=== PATIENT | female | born 1970 | race Two or more races ===

== ENCOUNTER 2019-10-31 13:05 | Emergency (ER) | payer SELFPAY ==
[~2019-10-31] VITALS: Ht 152.4 cm; Wt 65.9 kg
--- NOTE | 2019-10-31 13:40 | PHYS DOC ---
Adult General Chief Complaint Chief Complaint: COUGH HPI HPI Patient is a 49 year old female who presents with fever, cough, soa, dizziness, x 3 days. She states she no longer feels as though she has fever but all other symptoms present. Medical Reception Specialist phone used. Patient states she has a bad headache. She rates her headache at a 9 out of 10. She states she has not taken any pain medications today. She states she she's been drinking tea and taking ibuprofen for her symptoms but none today. Denies any past medical history. Review of Systems Review of Systems Constitutional: fever or chills [] Respiratory: cough or shortness of breath [] Cardiovascular: Mid chest pain Neurologic: headache, denies focal weakness or sensory changes [] All other systems were reviewed and found to be within normal limits, except as documented in this note. Current Medications Current Medications Current Medications Medications (Trade) Dose Ordered Sig/Sandip Start Time Stop Time Status Last Admin Dose Admin Albuterol Sulfate (Ventolin Neb Soln) 2.5 mg 1X ONCE 10/31/19 13:45 10/31/19 13:49 DC 10/31/19 13:45 2.5 MG Fentanyl Citrate (Fentanyl 2ml Vial) 50 mcg 1X ONCE 10/31/19 14:00 10/31/19 14:01 DC 10/31/19 14:42 50 MCG Meclizine HCl (Antivert) 25 mg 1X ONCE 10/31/19 14:00 10/31/19 14:01 DC 10/31/19 14:41 25 MG Prednisone (Prednisone) 50 mg 1X ONCE 10/31/19 13:45 10/31/19 13:49 DC 10/31/19 14:41 50 MG Allergies Allergies Allergies Coded Allergies Type Severity Reaction Last Updated Verified No Known Drug Allergies 10/31/19 No Physical Exam Physical Exam Constitutional: Well developed, well nourished, no acute distress, non-toxic appearance. [] HENT: Normocephalic, atraumatic, bilateral external ears normal, oropharynx moist, no oral exudates, nose normal. [] Eyes: PERRLA, EOMI, conjunctiva normal, no discharge. [] Neck: Normal range of motion, no tenderness, supple, no stridor. [] Cardiovascular:Heart rate regular rhythm, no murmur [] Lungs & Thorax: Bilateral breath sounds clear to auscultation [] Abdomen: Bowel sounds normal, soft, no tenderness, no masses, no pulsatile masses. [] Skin: Warm, dry, no erythema, no rash. [] Back: No tenderness, no CVA tenderness. [] Extremities: No tenderness, no cyanosis, no clubbing, ROM intact, no edema. [] Neurologic: Alert and oriented X 3, normal motor function, normal sensory function, no focal deficits noted. [] Psychologic: Affect normal, judgement normal, mood normal. [] Normal Physical Exam Current Patient Data Vital Signs Vital Signs Date Time Temp Pulse Resp B/P (MAP) Pulse Ox O2 Delivery O2 Flow Rate FiO2 10/31/19 14:42 16 99 Room Air 10/31/19 13:18 97.8 75 147/73 (97) 97.8 Lab Values Laboratory Tests Test 10/31/19 13:36 10/31/19 14:15 10/31/19 14:50 10/31/19 14:53 Influenza Type A Antigen Negative (NEGATIVE) Influenza Type B Antigen Negative (NEGATIVE) White Blood Count 6.3 x10^3/uL (4.0-11.0) Red Blood Count 4.83 x10^6/uL (3.50-5.40) Hemoglobin 14.5 g/dL (12.0-15.5) Hematocrit 43.2 % (36.0-47.0) Mean Corpuscular Volume 89 fL (79-100) Mean Corpuscular Hemoglobin 30 pg (25-35) Mean Corpuscular Hemoglobin Concent 34 g/dL (31-37) Red Cell Distribution Width 12.7 % (11.5-14.5) Platelet Count 146 x10^3/uL (140-400) Neutrophils (%) (Auto) 34 % (31-73) Lymphocytes (%) (Auto) 53 % (24-48) H Monocytes (%) (Auto) 8 % (0-9) Eosinophils (%) (Auto) 3 % (0-3) Basophils (%) (Auto) 1 % (0-3) Neutrophils # (Auto) 2.2 x10^3/uL (1.8-7.7) Lymphocytes # (Auto) 3.3 x10^3/uL (1.0-4.8) Monocytes # (Auto) 0.5 x10^3/uL (0.0-1.1) Eosinophils # (Auto) 0.2 x10^3/uL (0.0-0.7) Basophils # (Auto) 0.1 x10^3/uL (0.0-0.2) Sodium Level 141 mmol/L (136-145) Potassium Level 3.9 mmol/L (3.5-5.1) Chloride Level 102 mmol/L (98-107) Carbon Dioxide Level 28 mmol/L (21-32) Anion Gap 11 (6-14) Blood Urea Nitrogen 10 mg/dL (7-20) Creatinine 0.6 mg/dL (0.6-1.0) Estimated GFR (Cockcroft-Gault) 106.3 BUN/Creatinine Ratio 17 (6-20) Glucose Level 119 mg/dL (70-99) H Calcium Level 9.1 mg/dL (8.5-10.1) Total Bilirubin 0.3 mg/dL (0.2-1.0) Aspartate Amino Transferase (AST) 29 U/L (15-37) Alanine Aminotransferase (ALT) 18 U/L (14-59) Alkaline Phosphatase 72 U/L (46-116) Troponin I Quantitative < 0.017 ng/mL (0.000-0.055) Total Protein 8.1 g/dL (6.4-8.2) Albumin 3.4 g/dL (3.4-5.0) Albumin/Globulin Ratio 0.7 (1.0-1.7) L Urine Collection Type Unknown Urine Color Yellow Urine Clarity Clear Urine pH 7.5 Urine Specific [place] 1.015 Urine Protein Negative mg/dL (NEG-TRACE) Urine Glucose (UA) Negative mg/dL (NEG) Urine Ketones (Stick) Negative mg/dL (NEG) Urine Blood Trace (NEG) Urine Nitrite Negative (NEG) Urine Bilirubin Negative (NEG) Urine Urobilinogen Dipstick 0.2 mg/dL (0.2 mg/dL) Urine Leukocyte Esterase Negative (NEG) Urine RBC 11-20 /HPF (0-2) Urine WBC 0 /HPF (0-4) Urine Squamous Epithelial Cells Mod /LPF Urine Bacteria 0 /HPF (0-FEW) Urine Mucus Slight /LPF POC Urine HCG, Qualitative Hcg negative (Negative) Laboratory Tests 10/31/19 14:15 Laboratory Tests 10/31/19 14:15 EKG EKG NSR[] Interpretation Time: [address] Nichols Radiology/Procedures Radiology/Procedures [] Impressions: [address] [address] IMAGING REPORT Signed PATIENT: FARTUN NG ACCOUNT: [id number] : 1970 LOCATION: ER AGE: 49 SEX: F EXAM STATUS: REG ER ORD. PHYSICIAN: BRIANA PEREZ APRN REASON: cough PROCEDURE: CHEST PA & LATERAL CHEST PA LATERAL History: Cough Comparison: None. Findings: Frontal and lateral views of the chest were obtained. The cardiomediastinal silhouette is normal. Pulmonary vasculature is normal. The lungs are clear. No pleural effusion or pneumothorax is seen. There is no acute bone abnormality. IMPRESSION: No acute cardiopulmonary process. Electronically signed by: Nate Aguilar MD (10/31/2019 3:21 PM) [id number] DICTATED and SIGNED BY: NATE AGUILAR MD DATE: 10/31/19 [id number] [place], [place] [id number] IMAGING REPORT Signed PATIENT: FARTUN NG ACCOUNT: [id number] : 1970 LOCATION: ER AGE: 49 SEX: F EXAM STATUS: REG ER ORD. PHYSICIAN: BRIANA EPREZ APRN REASON: dizziness x 3 days PROCEDURE: CT HEAD WO CONTRAST STUDY: CT head without contrast INDICATION: Dizziness. COMPARISON: None. TECHNIQUE: Axial CT imaging through the head without the use of intravenous contrast. Sagittal and coronal reformats were obtained. One or more of the following individualized dose reduction techniques were utilized for this examination: 1. Automated exposure control 2. Adjustment of the mA and/or kV according to patient size 3. Use of iterative reconstruction technique. FINDINGS: No acute intracranial hemorrhage. Small focus of mineralization within the right frontal lobe, image 16 series 2, which can be seen in the setting of a remote granulomatous process. Grijalva-white matter differentiation is maintained. No mass effect, midline shift or hydrocephalus. Intact calvarium. No mastoid or middle ear effusion. The visualized paranasal sinuses are normally aerated. IMPRESSION: No acute intracranial abnormality identified to account for the patient's symptoms. Electronically signed by: ONIEL RAMOS MD (10/31/2019 3:32 PM) [facility] DICTATED and SIGNED BY: ONIEL RAMOS MD DATE: 10/31/19 1532 Course & Med Decision Making Course & Med Decision Making Pertinent Labs and Imaging studies reviewed. (See chart for details) Ambulatory with a steady gait. She states that she feels palpitations at times. PERRLA. Speaks in full clear sentences. Denies any numbness or tingling, abdominal pain, nausea, vomiting, diarrhea, syncope, vision changes, focal weakness. Skin pink warm and dry. Vital signs within normal limits. Alert and oriented. Lungs clear to auscultation. Bilateral tympanics white. Throat pink without swelling or exudates. No sinus tenderness. Blood work unremarkable. Chest x-ray and CT head came back normal. I have spoken to patient using barrel rifler button phone. Patient states she is feeling much better and the dizziness is only there with movement of her head. She denies chest pain or soa and states the breathing treatment helped a lot. [] Dragon Disclaimer Dragon Disclaimer This electronic medical record was generated, in whole or in part, using a voice recognition dictation system. The HEART Score for CP Pts HEART Score for Chest Pain: HEART Score for Chest Pain Response (Comments) Value History Slighlty/Non-Suspicious 0 ECG Normal 0 Age >45 - < 65 1 Risk Factors No Risk Factors 0 Troponin < Normal Limit 0 Total 1 Risk Factors: Risk Factors: DM, Current or recent (<one month) smoker, HTN, HLP, family history of CAD, obesity. Risk Scores: Score 0 - 3: 2.5% MACE over next 6 weeks - Discharge Home Score 4 - 6: 20.3% MACE over next 6 weeks - Admit for Clinical Observation Score 7 - 10: 72.7% MACE over next 6 weeks - Early Invasive Strategies NIHSS Stroke Scale NIH Stroke Scale: NIH Stroke Scale Response (Comments) Value Level of Consciousness: 0 Alert/Responsive 0 LOC Questions: 0 Answers both correctly 0 LOC Commands: 0 Performs both tasks 0 Best Gaze: 0 Normal 0 Visual: 0 No visual loss 0 Facial Palsy: 0 Normal, symmetrical 0 Motor - Left Arm 0 No drift 0 Motor - Right Arm 0 No drift 0 Motor - Left Leg 0 No drift 0 Motor: Right Leg 0 No drift 0 Limb Ataxia: 0 Absent 0 Sensory: 0 No loss 0 Best Language: 0 Normal 0 Dysathria: 0 Normal 0 Extinction and Inattention: 0 Normal 0 Total 0 Departure Departure Impression: Primary Impression: Cough Additional Impressions: Shortness of breath Headache Dizziness Disposition: 01 HOME, SELF-CARE Condition: STABLE Patient Instructions: Cough, Adult, General Headache Without Cause, Vertigo Additional Instructions: Follow up with primary care provider. Go from sitting to standing slowly. Take medications as prescribed. Drink plenty of fluids. Scripts Meclizine Hcl (MECLIZINE HCL) 25 Mg Tablet 1 TAB PO TID, #30 TAB Prov: BRIANA PEREZ APRN 10/31/19 Albuterol Sulfate (PROAIR HFA INHALER) 8.5 Gm Hfa.aer.ad 1 PUFF INH PRN Q6HRS PRN for SHORTNESS OF BREATH, #1 INHALER 0 Refills Prov: BRIANA PEREZ APRN 10/31/19 Benzonatate (TESSALON PERLE) 100 Mg Capsule 1 CAP PO TID, #30 CAP Prov: BRIANA PEREZ APRN 10/31/19 Methylprednisolone (MEDROL) 4 Mg Tab.ds.pk 1 PKG PO UD, #1 PKG Prov: BRIANA PEREZ APRN 10/31/19 Problem Qualifiers Additional Impressions: Headache Headache type: unspecified Headache chronicity pattern: acute headache Intractability: not intractable Qualified Codes: R51 - Headache BRIANA PEREZ APRN Oct 31, 2019 13:40
[2019-10-31] MEDS ORDERED: predniSONE 10 MG TABLET PO ONE (13:45)
[2019-10-31] MEDS ORDERED: ALBUTEROL SULFATE 2.5 MG/3 ML NEBU. NEB ONE (13:45)
[2019-10-31] MEDS ORDERED: MECLIZINE HCL 12.5 MG TABLET. PO ONE (14:00)
[2019-10-31] MEDS ORDERED: fentaNYL PF VIAL 100 MCG/2 ML VIAL IVP ONE (14:00)
[2019-10-31 14:13] LABS: INFLUENZA A PATIENT NEGATIVE (NEGATIVE); INFLUENZA B PATIENT NEGATIVE (NEGATIVE)
[2019-10-31 14:48] LABS: BASO # 0.1 x10^3/uL (0.0-0.2); BASO % 1 % (0-3); EOS # 0.2 x10^3/uL (0.0-0.7); EOS % 3 % (0-3); HEMATOCRIT 43.2 % (36.0-47.0); HEMOGLOBIN 14.5 g/dL (12.0-15.5); LYMPH # 3.3 x10^3/uL (1.0-4.8); LYMPH % 53 % (24-48); MEAN CORPUSCULAR HEMOGLOBIN 30 pg (25-35); MEAN CORPUSCULAR HGB CONC 34 g/dL (31-37); MEAN CORPUSCULAR VOLUME 89 fL (79-100); MONO # 0.5 x10^3/uL (0.0-1.1); MONO % 8 % (0-9); NEUT # 2.2 x10^3/uL (1.8-7.7); NEUT % 34 % (31-73); PLATELET COUNT 146 x10^3/uL (140-400); RED BLOOD COUNT 4.83 x10^6/uL (3.50-5.40); RED CELL DISTRIBUTION WIDTH 12.7 % (11.5-14.5); WHITE BLOOD COUNT 6.3 x10^3/uL (4.0-11.0)
[2019-10-31 14:58] LABS: CALCIUM 9.1 mg/dL (8.5-10.1); CREATININE 0.6 mg/dL (0.6-1.0); GFR 106.3; POTASSIUM 3.9 mmol/L (3.5-5.1)
[2019-10-31 15:01] LABS: BILIRUBIN,URINE NEGATIVE (NEG); CLARITY,URINE CLEAR; COLOR,URINE YELLOW; NITRITE,URINE NEGATIVE (NEG); PH,URINE 7.5; PROTEIN,URINE NEGATIVE (NEG-TRACE); UROBILINOGEN,URINE 0.2 mg/dL (0.2 mg/dL)
[2019-10-31 15:05] LABS: ALBUMIN 3.4 g/dL (3.4-5.0); ALBUMIN/GLOBULIN RATIO 0.7 (1.0-1.7); TOTAL BILIRUBIN 0.3 mg/dL (0.2-1.0); TOTAL PROTEIN 8.1 g/dL (6.4-8.2)
[2019-10-31 15:10] LABS: SQUAMOUS EPITHELIAL CELL,UR MOD /LPF
[2019-10-31 15:11] VITALS: BP 132/69
[2019-10-31 15:11] LABS: BACTERIA,URINE 0 /HPF (0-FEW); WBC,URINE 0 /HPF (0-4)
--- NOTE | 2019-10-31 15:24 | RAD ---
CHEST PA LATERAL History: Cough Comparison: None. Findings: Frontal and lateral views of the chest were obtained. The cardiomediastinal silhouette is normal. Pulmonary vasculature is normal. The lungs are clear. No pleural effusion or pneumothorax is seen. There is no acute bone abnormality. IMPRESSION: No acute cardiopulmonary process. Electronically signed by: Nate Vick MD (10/31/2019 3:21 PM) [id number]
--- NOTE | 2019-10-31 15:35 | RAD ---
STUDY: CT head without contrast INDICATION: Dizziness. COMPARISON: None. TECHNIQUE: Axial CT imaging through the head without the use of intravenous contrast. Sagittal and coronal reformats were obtained. One or more of the following individualized dose reduction techniques were utilized for this examination: 1. Automated exposure control 2. Adjustment of the mA and/or kV according to patient size 3. Use of iterative reconstruction technique. FINDINGS: No acute intracranial hemorrhage. Small focus of mineralization within the right frontal lobe, image 16 series 2, which can be seen in the setting of a remote granulomatous process. Grijalva-white matter differentiation is maintained. No mass effect, midline shift or hydrocephalus. Intact calvarium. No mastoid or middle ear effusion. The visualized paranasal sinuses are normally aerated. IMPRESSION: No acute intracranial abnormality identified to account for the patient's symptoms. Electronically signed by: ONIEL RAMOS MD (10/31/2019 3:32 PM) [facility]
[2019-10-31] MEDS ORDERED: MECL-75 PO (15:54)
[2019-10-31] MEDS ORDERED: METH4TAB2 PO (15:54)
[2019-10-31] MEDS ORDERED: BENZ100C PO (15:54)
[2019-10-31] MEDS ORDERED: ALBU2.5V8 INH (15:54)
--- NOTE | 2019-11-01 00:10 | EKG ---
[facility] [address] [place] [address] Test Date: 2019-10-31 Test Time: 14:03:18 Pat Name: FARTUN NG Department: Room: Gender: F Program Consultant: : 1970 Requested By: BRIANA PEREZ Order Number: [id number] Reading MD: Measurements Intervals [place] Rate: 80 P: 45 MD: 124 QRS: 13 QRSD: 86 T: 10 QT: 402 QTc: 467 Interpretive Statements SINUS RHYTHM NORMAL ECG No previous ECG available for comparison
== END 2019-10-31 16:20 | disposition home or self-care (01) ==
LOC: ER 13:05
DX: R05 Cough (principal); R51 Headache; R06.02 Shortness of breath; R42 Dizziness and giddiness; R50.9 Fever, unspecified; F10.10 Alcohol abuse, uncomplicated
CPT/HCPCS: 36415; 70450; 71046; 80053; 81001; 81025; 84484; 85025; 87804; 93005; 94640; 96374; 99285; J3010; J7512; J7613; J8597